=== PATIENT | male | born 1960 ===

== ENCOUNTER 2016-12-09 19:11 | Emergency (ER) | payer MEDICAID ==
[2016-12-09] MEDS ORDERED: LABETALOL HCL 100 MG/20 ML VIAL IV ONE (19:47)
[2016-12-09 19:50] LABS: CALCIUM 7.9 mg/dL (8.4-10.2); POTASSIUM 4.1 mmol/L (3.5-5.1)
--- NOTE | 2016-12-09 20:34 | ER NURSING DOCUMENTATION ---
Nurse's Notes [facility] Name:Dale Caballero Age:56 yrs Sex:Male :1960 Arrival Date:12/09/2016 Time:19:11 Bed4 Private MD:Blanche Giang Diagnosis:Hyponatremia;Hyperglycemia;Hypertension;Dehydration Presentation: 12/09 19:17 Presenting complaint: Patient states: Heart palpitations and headache. Recent travel [facility] and feels like he might be dehydrated. HX- HTN. Transition of care: Home. 19:17 Method Of Arrival: Walk In [facility] 19:17 Acuity: MARIANA 3 4 Triage Assessment: 19:45 General: Appears comfortable, Behavior is anxious. Pain: Denies pain. [facility] Historical: - Allergies: No known drug Allergies; - Home Meds: 1. lisinopril 40 mg oral tab once daily 2. losartan 25 mg oral tab once daily - PMHx: Hypertension; - Tetanus: < 10 years. - Ebola Screening: : No symptoms or risks identified at this time. . - Immunization history: Flu Vaccine < 1 year. - Social history: Smoking status: Patient states was never smoker of tobacco. Screenin:01 Infectious Disease Risk None. Abuse screen: Denies threats or abuse. Nutritional [facility] screening: No deficits noted. Assessment: 19:59 See Triage Assessment done by same RN. 4 Vital Signs: 19:11 BP 177 / 86; Pulse 94; Resp 20; Temp 99.0(O); Pulse Ox 95% on R/A; Weight 81.65 kg (R); arc Height 5 ft. 2 in. (157.48 cm) (R); Pain 3/10; 19:53 BP 151 / 77; Pulse 88; Resp 14; Pulse Ox 96% on R/A; mk4 20:09 BP 147 / 74; Pulse 17; Resp 15; Pulse Ox 97% ; mk4 20:31 BP 158 / 84; Pulse 82; Resp 19; Temp 98.6; Pulse Ox 97% on R/A; Pain 0/10; mk4 19:11 Body Mass Index 32.92 (81.65 kg, 157.48 cm) arc ED Course: 19:12 Patient arrived in ED. em2 19:12 Physician, Blanche is Private Physician. em2 19:17 Candice Alcaraz is Primary Nurse. mk4 19:19 Triage completed. 4 19:24 Caden Vo MD is Attending Physician. sravani 19:40 Inserted peripheral IV: 20 gauge in right hand. [facility] 19:59 Allergy Band Placed Arm band placed on Bed in low position Call Light in Reach Side 4 rails up x2. Family accompanied patient. EKG done per protocol. Performed by ED Staff. Labs ordered per protocol. Drawn by ED staff. 20:02 Valuables Remains with patient. 4 Administered Medications: 19:48 Drug: Labetalol 10 mg; Route: IVP; Rate: 10 bolus; Infused Over: 2 mins; Site: right [facility] hand; 20:00 Follow up: Response: No adverse reaction; Blood pressure is lowered [facility] Outcome: 20:17 Discharge ordered by . 20:31 Discharged to home [facility] 20:31 Condition: good 20:31 Discharge Assessment: Patient awake, alert and oriented x 3. No cognitive and/or functional deficits noted. Patient verbalized understanding of disposition instructions. 20:31 Discharge instructions given to patient, Instructed on discharge instructions, follow up and referral plans. Incentive Spirometer Demonstrated understanding of instructions. 20:33 Patient left the ED. [facility] 12/10 13:25 Discharge F/U Call: Unable to reach: left voicemail: lc Signatures: Tara Moore RN RN Caden Solis MD MD jm [id number] em2 Candice Alcaraz [facility] Irma Lobo, Reg Reg arc
--- NOTE | 2016-12-09 20:34 | ER PHYSICIAN DOCUMENTATION ---
Physician Documentation [facility] Name:Dale Caballero Age:56 yrs Sex:Male :1960 Arrival Date:12/09/2016 Time:19:11 Bed4 Private MD:Physician, No ED Caden Portillo Disposition: 12/09/16 20:17 Discharged to Home/Self Care. Impression: Hyponatremia, Hyperglycemia, Hypertension, Dehydration. - Condition is Good. - Discharge Instructions: HYPONATREMIA. - Medical Reconciliation form form. - Follow up: Private Physician; When: 1 - 2 days; Reason: Continuance of care. - Problem is new. - Symptoms have improved. - Notes: Give your doctor your lab sheet early this week. We gave you 10mg of labetolol which lowered your BP. HPI: 12/09 20:00 This 56 yrs old Unknown Male presents to ER via Walk In with complaints of High Blood jm Pressure. 20:00 The patient has elevated blood pressure and discovered this at home. Onset: The jm symptom(s)/episode began/occurred today. Associated signs and symptoms: Pertinent positives: anxiety. Pt [place] and his diet was off. He returned home 2 days ao and his BP's have been elevated, so he decided to come in . His PCP is on [place]. Pt denies any other sx, but admits to feeling anxious about his BP elevation. . Historical: - Allergies: No known drug Allergies; - Home Meds: 1. lisinopril 40 mg oral tab once daily 2. losartan 25 mg oral tab once daily - PMHx: Hypertension; - Tetanus: < 10 years. - Ebola Screening: : No symptoms or risks identified at this time. . - Immunization history: Flu Vaccine < 1 year. - Social history: Smoking status: Patient states was never smoker of tobacco. ROS: 20:00 Constitutional: Negative for fever, malaise. 20:00 Cardiovascular: Negative for chest pain. 20:00 Respiratory: Negative for cough, shortness of breath. 20:00 Abdomen/GI: Negative for abdominal pain, nausea, vomiting. 20:00 Neuro: Negative for dizziness, headache, weakness. Exam: 20:00 Constitutional: The patient appears in no acute distress, alert, awake, comfortable. 20:00 Cardiovascular: Rate: normal, Rhythm: regular. 20:00 Cardiovascular: Edema: is not appreciated. 20:00 Respiratory: mild respiratory distress is noted, Respirations: tachypnea, Breath sounds: are normal. 20:00 Musculoskeletal/extremity: DVT Exam: No signs of deep vein thrombosis. Calves: are non-tender, have equal circumference. 20:00 Neuro: Mentation: is normal, Memory: is normal. Vital Signs: 19:11 BP 177 / 86; Pulse 94; Resp 20; Temp 99.0(O); Pulse Ox 95% on R/A; Weight 81.65 kg (R); arc Height 5 ft. 2 in. (157.48 cm) (R); Pain 3/10; 19:53 BP 151 / 77; Pulse 88; Resp 14; Pulse Ox 96% on R/A; mk4 20:09 BP 147 / 74; Pulse 17; Resp 15; Pulse Ox 97% ; mk4 20:31 BP 158 / 84; Pulse 82; Resp 19; Temp 98.6; Pulse Ox 97% on R/A; Pain 0/10; mk4 19:11 Body Mass Index 32.92 (81.65 kg, 157.48 cm) arc MDM: 19:24 Patient medically screened. 20:51 Differential diagnosis: hypertensive crisis. Data reviewed: vital signs, nurses notes, lab test result(s), EKG, and as a result, I will discharge patient. Test interpretation: by ED physician or midlevel provider: ECG. Counseling: I had a detailed discussion with the patient and/or guardian regarding: the historical points, exam findings, and any diagnostic results supporting the discharge/admit diagnosis, lab results, the need for outpatient follow up, with the patient's primary care provider. ECG:. Response to treatment: the patient's symptoms have markedly improved after treatment. ED course: Pts BP better after labetalol 10mg. BMP shows low Co2 which I believe his from hyperventilation when pt arrived. This has resolved. Pt also w hyponatremia. I did not investigate this as he seems symptom free. Pt also w hyperglycemia. Perhaps he is becoming diabetic. I URGED that he needed to make appointmet w PCP to f/u these labs and his BP. Pt understood and said he will call in the AM. . 12/09 19:55 Order name: BASIC METABOLIC PANEL; Complete Time: 20:03 EDIA 12/09 19:32 Order name: 12-lead EKG; Complete Time: :53 12/09 19:32 Order name: Pulse Ox Continuous; Complete Time: :53 12/09 20:14 Order name: PO Challenge EC:51 Rhythm is regular. QRS [place] is Normal. VA interval is normal. QRS interval is normal. jm QT interval is normal. No Q waves. T waves are Normal. No ST changes noted. Dispensed Medications: 19:48 Drug: Labetalol 10 mg; Route: IVP; Rate: 10 bolus; Infused Over: 2 mins; Site: right [facility] hand; 20:00 Follow up: Response: No adverse reaction; Blood pressure is lowered [facility] Signatures: Caden Vo MD MD jm King, Melody [facility]
== END 2016-12-09 20:34 | disposition home or self-care (01) ==
LOC: ER 19:11
DX: E87.1 Hypo-osmolality and hyponatremia (principal); I10 Essential (primary) hypertension; E86.0 Dehydration; R73.9 Hyperglycemia, unspecified; Z79.899 Other long term (current) drug therapy
CPT/HCPCS: 80048; 93005; 96374; 99284